=== PATIENT | female | born 1980 ===

== ENCOUNTER 2018-03-06 00:12 | Emergency (ER) | payer OTHER ==
[2018-03-06 01:01] VITALS: TEMP 98.4
--- NOTE | 2018-03-06 01:42 | C.PDOC ---
Chief Complaint (Nursing): Upper Extremity Problem/Injury Past Medical History Vital Signs: Last Vital Signs Temp 98.4 F 03/06/18 00:49 Pulse 74 03/06/18 00:49 Resp 16 03/06/18 00:49 BP 116/87 03/06/18 00:49 Pulse Ox 99 03/06/18 00:49 Family History: States: Unknown Family Hx - Social History Hx Tobacco Use: No Hx Alcohol Use: Yes (social) Hx Substance Use: No - Immunization History Hx Tetanus Toxoid Vaccination: No Hx Influenza Vaccination: Yes Hx Pneumococcal Vaccination: Yes ED Course And Treatment O2 Sat by Pulse Oximetry: 99 Disposition Counseled Patient/Family Regarding: Diagnosis - Disposition Referrals: [facility] [Outside] Disposition: HOME/ ROUTINE Disposition Time: 01:41 Condition: STABLE Prescriptions: Naproxen 375 mg PO Q8 #20 tablet Instructions: Shoulder Tendinopathy (DC), Tendonitis - POA Present On Arrival: None - Clinical Impression Clinical Impression: Tendinitis of left shoulder
--- NOTE | 2018-03-06 01:49 | C.PDOC ---
History Of Present Illness 37 y/o female presents to the ER for left shoulder pain that began a few hours ago after exercising. She states the injury was not direct. Patient has no other medical complaints at this time. Time Seen by Provider: 03/06/18 01:35 Chief Complaint (Nursing): Upper Extremity Problem/Injury History Per: Patient History/Exam Limitations: no limitations Onset/Duration Of Symptoms: Hrs Current Symptoms Are (Timing): Still Present Past Medical History Vital Signs: Last Vital Signs Temp 98.4 F 03/06/18 00:49 Pulse 67 03/06/18 02:06 Resp 12 03/06/18 02:06 BP 132/70 03/06/18 02:02 Pulse Ox 100 03/06/18 02:06 Other Surgeries: Dilation and Curettage Family History: States: Unknown Family Hx - Social History Hx Tobacco Use: No Hx Alcohol Use: Yes (social) Hx Substance Use: No - Immunization History Hx Tetanus Toxoid Vaccination: No Hx Influenza Vaccination: Yes Hx Pneumococcal Vaccination: Yes Review Of Systems Except As Marked, All Systems Reviewed And Found Negative. Constitutional: Positive for: Fever Musculoskeletal: Positive for: Shoulder Pain Physical Exam - Physical Exam Appears: Non-toxic, No Acute Distress Skin: Normal Color, Warm, Dry Head: Atraumatic, Normacephalic Eye(s): bilateral: EOMI Ear(s): Bilateral: Normal Oral Mucosa: Moist Neck: Normal ROM, Supple Chest: Symmetrical Cardiovascular: Rhythm Regular Respiratory: Normal Breath Sounds, No Rales, No Rhonchi, No Wheezing Gastrointestinal/Abdominal: Normal Exam, Soft, No Tenderness Back: Other (tenderness in left deltoid) Extremity: Normal ROM Extremity: Bilateral: Atraumatic, Normal Color And Temperature, Normal ROM Pulses: Left Dorsalis Pedis: Normal, Right Dorsalis Pedis: Normal Neurological/Psych: Oriented x3 ED Course And Treatment O2 Sat by Pulse Oximetry: 99 (RA) Pulse Ox Interpretation: Normal Medical Decision Making Medical Decision Making: Impression: 37 y/o female with left shoulder pain Plain: --Toradol 60mg Disposition Counseled Patient/Family Regarding: Diagnosis - Disposition Referrals: [facility] [Outside] Disposition: HOME/ ROUTINE Disposition Time: 02:00 Condition: STABLE Prescriptions: Naproxen 375 mg PO Q8 #20 tablet Instructions: Tendonitis, Shoulder Tendinopathy (DC) Forms: [facility] [employer] [facility] (Swedish) - POA Present On Arrival: None - Clinical Impression Clinical Impression: Tendinitis of left shoulder - Scribe Statement The provider has reviewed the documentation as recorded by the Scribe (Keyana Brower) Provider Attestation: All medical record entries made by the Scribe were at my direction and personally dictated by me. I have reviewed the chart and agree that the record accurately reflects my personal performance of the history, physical exam, medical decision making, and the department course for this patient. I have also personally directed, reviewed, and agree with the discharge instructions and disposition.
[2018-03-06 02:07] VITALS: BP 132/70; PULSE 67; RESP 12
[2018-03-06 10:45] VITALS: O2SAT 99
== END 2018-03-06 02:02 | disposition home or self-care (01) ==
LOC: C.ER 00:12
DX: M75.92 Shoulder lesion, unspecified, left shoulder (principal)
CPT/HCPCS: 96372; 99283; J1885